=== PATIENT | female | born 1985 | race African-American/Black ===

== ENCOUNTER 2018-01-26 23:36 | Emergency (ER) | payer SELFPAY ==
[~2018-01-26] VITALS: Ht 160 cm; Wt 105.0 kg
[2018-01-27] MEDS ORDERED: ACETAMINOPHEN 325MG TABLET PO STA (00:37)
[2018-01-27] MEDS ORDERED: LABETALOL HCL 100MG TABLET PO ONE (00:45)
[2018-01-27] MEDS ORDERED: GUAIFENESIN 200MG/10ML SUGAR FREE UDC PO ONE (00:45)
[2018-01-27] MEDS ORDERED: AZITHROMYCIN 250 MG TABLET PO ONE (00:45)
[2018-01-27 01:26] VITALS: BP 203/131
== END 2018-01-27 01:26 | disposition home or self-care (01) ==
LOC: ER 23:36
DX: J06.9 Acute upper respiratory infection, unspecified (principal); I10 Essential (primary) hypertension; Z91.11 Patient's noncompliance with dietary regimen; Z98.890 Other specified postprocedural states
CPT/HCPCS: 71045; 81025; 99284

== ENCOUNTER 2024-01-15 18:26 | Inpatient (IN) | payer MEDICAID ==
[~2024-01-15] VITALS: Ht 157.5 cm; Wt 87.1 kg
[~2024-01-15 18:26] MED LIST: AMLO5TAB88 PO; ASPI-1406 PO; CLON0.1T PO; FURO-151 MT; FURO-151 PO; HYDR100T26 PO; HYDR50TA39 PO; LIP40 PO; METO-539 PO; POTA-205 MT; SPIR25TA6 PO; THIA100T72 PO
[2024-01-15 19:55] LABS: BASOPHILS % 0.8 % (0.0-2.0); EOSINOPHILS % 0.3 % (0.0-5.0); HEMATOCRIT. 33.8 % (36.0-48.0); HEMOGLOBIN. 11.1 g/dL (12.0-16.0); LYMPHOCYTES % 17.5 % (20.0-50.0); MEAN CORPUSCULAR HEMOGLOBIN 31.1 pg (28.0-32.0); MEAN CORPUSCULAR HGB CONC 32.9 g/dL (31.0-37.0); MEAN CORPUSCULAR VOLUME 94.6 fL (81.0-99.0); MEAN PLATELET VOLUME 7.1 fl (7.4-10.4); MONOCYTES % 9.4 % (2.0-8.0); PLATELET 309 x1000/uL (130-400); RED BLOOD CELL COUNT 3.57 mill/uL (4.2-5.4); WHITE BLOOD COUNT 9.2 x1000/uL (4.5-11.0)
[2024-01-15 20:01] LABS: CHLORIDE 104 mEq/L (98-107); POTASSIUM 4.3 mEq/L (3.5-5.1); SODIUM 136 mEq/L (136-145)
[2024-01-15 20:02] LABS: CALCIUM 9.4 mg/dL (8.7-10.4); CARBON DIOXIDE 17 mEq/L (21-32)
[2024-01-15 20:07] LABS: CREATININE 2.2 mg/dL (0.6-1.0); GLUCOSE 98 mg/dL (70-105); UREA NITROGEN BLOOD 27 mg/dL (9-23)
[2024-01-15 20:12] LABS: TROPONIN I HIGH SENSITIVITY 51 ng/L (3.0-34)
[2024-01-15] MEDS: FUROSEMIDE 40MG/4ML VIAL IVP ONE ×2 (20:13→23:30)
[2024-01-15 20:24] LABS: HCG SCREEN NEGATIVE
[2024-01-15] MEDS ORDERED: ENALAPRIL 2.5MG/2ML VIAL 2ML IV ONE (21:30)
[2024-01-15 21:34] LABS: TROPONIN I HIGH SENSITIVITY 56 ng/L (3.0-34)
[2024-01-15] MEDS: ENALAPRIL 1.25MG/ML VIAL 1ML IV NR (21:48)
[2024-01-16] VITALS (13 sets, daily range): BP systolic 101–185; BP diastolic 57–113; PULSE 78–100; RESP 13–26; TEMP 97.3–97.9
[2024-01-16] MEDS ORDERED: ZOLPIDEM TARTRATE 5MG TABLET PO PRN (01:00)
[2024-01-16] MEDS ORDERED: IPRATROPIUM/ALBUTEROL 0.5-3(2.5)MG/3ML NEB NEB PRN (01:00)
[2024-01-16] MEDS ORDERED: DOCUSATE SODIUM 100MG CAPSULE PO PRN (01:00)
[2024-01-16] MEDS ORDERED: ONDANSETRON HCL 4MG/2ML INJ IV PRN (01:00)
[2024-01-16] MEDS ORDERED: ACETAMINOPHEN 325MG TABLET PO PRN (01:00)
[2024-01-16] MEDS: AMLODIPINE 5MG TABLET PO SCH (01:09)
[2024-01-16] MEDS: THIAMINE HCL 100MG TABLET PO SCH (01:09)
[2024-01-16] MEDS: CLONIDINE 0.1MG TABLET PO PRN (02:48)
[2024-01-16] MEDS: MINOXIDIL 2.5MG TABLET PO NR (04:18)
[2024-01-16] MEDS: HYDRALAZINE HCL 100MG TABLET PO SCH (05:14)
[2024-01-16] MEDS: CLONIDINE 0.1MG TABLET PO SCH (05:14)
[2024-01-16 06:23] LABS: CLARITY URINE CLEAR (CLEAR); COLOR URINE YELLOW (YELLOW); GLUCOSE URINE NEGATIVE (NEGATIVE); KETONES URINE NEGATIVE (NEGATIVE); LEUKOCYTE ESTERASE URINE NEGATIVE (NEGATIVE); NITRITE URINE NEGATIVE (NEGATIVE); OCCULT BLOOD URINE 1+ (NEGATIVE); PROTEIN URINE 1+ (NEGATIVE); SPECIFIC GRAVITY URINE 1.006 (1.005-1.030); UROBILINOGEN URINE 0.2 E.U./dL (0.2-1.0)
[2024-01-16 07:37] LABS: FINE GRANULAR CASTS URINE 0-5 /lpf; MUCUS URINE 1+ /lpf (< = 2+); SQUAMOUS EPITHELIAL CELL URINE FEW /lpf (RARE/1+)
[2024-01-16 07:38] LABS: RBC URINE NONE SEEN /hpf (0-2); WBC URINE 0-2 /hpf (0-2)
[2024-01-16 07:39] LABS: BACTERIA URINE TRACE
[2024-01-16 08:05] LABS: *AMPHETAMINES SCREEN URINE NEGATIVE (NEGATIVE); *BENZODIAZEPINES SCREEN URINE NEGATIVE (NEGATIVE)
[2024-01-16 08:06] LABS: *COCAINE SCREEN URINE NEGATIVE (NEGATIVE); CANNABINOID URINE SCREEN NEGATIVE (NEGATIVE); ECSTASY MDMA SCREEN URINE NEGATIVE (NEGATIVE); METHADONE URINE SCREEN NEGATIVE (NEGATIVE); OPIATES URINE SCREEN NEGATIVE (NEGATIVE); PHENCYCLIDINE URINE SCREEN NEGATIVE (NEGATIVE)
[2024-01-16 09:50] LABS: CREATINE KINASE MB FRACTION 3.1 ng/mL (0.5-3.6)
[2024-01-16] MEDS: ENOXAPARIN 40MG/0.4ML SYR SUBCUT SCH (09:57)
[2024-01-16] MEDS: METOPROLOL TARTRATE 50MG TABLET PO SCH (10:04)
[2024-01-16] MEDS: ASPIRIN 81MG EC TABLET PO SCH (10:05)
[2024-01-16 10:54] LABS: *BARBITURATES SCREEN URINE NEGATIVE (NEGATIVE)
[2024-01-16] MEDS ORDERED: *PATIENT'S OWN MEDICATION STORAGE XX SCH (11:15)
[2024-01-16] MEDS ORDERED: FUROSEMIDE 40MG/4ML VIAL IVP SCH (14:15)
[2024-01-16] MEDS: FUROSEMIDE 40MG/4ML VIAL IVP SCH (14:16)
[2024-01-16 17:14] LABS: CREATINE KINASE MB FRACTION 5.6 ng/mL (0.5-3.6)
[2024-01-16] MEDS: ATORVASTATIN CALCIUM 40MG TABLET PO SCH (20:23)
[2024-01-16] MEDS: MAGNESIUM/ALUMINUM HYDROXIDE/SIMETHICONE 30ML UDC PO PRN ×2 (20:31→23:37)
[2024-01-16] MEDS: PANTOPRAZOLE SODIUM 40 MG/VIAL IV SCH (23:36)
[2024-01-17] VITALS (12 sets, daily range): BP systolic 88–127; BP diastolic 52–89; PULSE 65–81; RESP 15–23; TEMP 96.5–97.7
[2024-01-17 05:23] LABS: POTASSIUM 3.4 mEq/L (3.5-5.1)
[2024-01-17 05:24] LABS: CALCIUM 8.2 mg/dL (8.7-10.4)
[2024-01-17 05:29] LABS: CREATININE 2.3 mg/dL (0.6-1.0)
[2024-01-17 05:47] LABS: BASOPHILS % 0.4 % (0.0-2.0); HEMOGLOBIN. 10.3 g/dL (12.0-16.0); LYMPHOCYTES % 10.1 % (20.0-50.0); MEAN CORPUSCULAR HEMOGLOBIN 31.4 pg (28.0-32.0); MEAN CORPUSCULAR HGB CONC 33.4 g/dL (31.0-37.0); MEAN CORPUSCULAR VOLUME 94.1 fL (81.0-99.0); MEAN PLATELET VOLUME 7.4 fl (7.4-10.4); MONOCYTES % 10.6 % (2.0-8.0); NEUTROPHILS % 77.9 % (40.0-76.0); PLATELET 279 x1000/uL (130-400); RED BLOOD CELL COUNT 3.29 mill/uL (4.2-5.4); RED CELL DISTRIBUTION WIDTH 19.3 % (11.6-14.6); WHITE BLOOD COUNT 7.7 x1000/uL (4.5-11.0)
[2024-01-17] MEDS ORDERED: THIA100T88 PO (16:16)
[2024-01-18] VITALS (12 sets, daily range): BP systolic 94–157; BP diastolic 60–103; PULSE 74–87; RESP 12–23; TEMP 97.5–98.7
[2024-01-18 06:33] LABS: CALCIUM 9.2 mg/dL (8.7-10.4); POTASSIUM 3.3 mEq/L (3.5-5.1)
[2024-01-18 06:39] LABS: BASOPHILS % 0.3 % (0.0-2.0); CREATININE 2.4 mg/dL (0.6-1.0); HEMATOCRIT. 30.3 % (36.0-48.0); HEMOGLOBIN. 9.8 g/dL (12.0-16.0); LYMPHOCYTES % 12.2 % (20.0-50.0); MEAN CORPUSCULAR HEMOGLOBIN 30.5 pg (28.0-32.0); MEAN CORPUSCULAR HGB CONC 32.4 g/dL (31.0-37.0); MEAN CORPUSCULAR VOLUME 94.1 fL (81.0-99.0); MEAN PLATELET VOLUME 7.3 fl (7.4-10.4); MONOCYTES % 13.5 % (2.0-8.0); PLATELET 320 x1000/uL (130-400); RED BLOOD CELL COUNT 3.22 mill/uL (4.2-5.4); RED CELL DISTRIBUTION WIDTH 18.8 % (11.6-14.6); WHITE BLOOD COUNT 6.3 x1000/uL (4.5-11.0)
[2024-01-18] MEDS: FAMOTIDINE 20MG/2ML VIAL IV SCH (09:51)
[2024-01-18] MEDS: POTASSIUM CHLORIDE 20MEQ TABLET SR PO NR (12:05)
[2024-01-18] MEDS: HYDRALAZINE HCL 50MG TABLET PO SCH (14:00)
[2024-01-18 19:07] LABS: CREATININE URINE RANDOM 39.3 mg/dL
[2024-01-19] VITALS (12 sets, daily range): BP systolic 105–149; BP diastolic 66–99; PULSE 62–77; RESP 14–37; TEMP 97.1–98
[2024-01-19 08:15] LABS: POTASSIUM 3.7 mEq/L (3.5-5.1)
[2024-01-19 08:16] LABS: CALCIUM 8.5 mg/dL (8.7-10.4)
[2024-01-19 08:21] LABS: CREATININE 2.2 mg/dL (0.6-1.0)
[2024-01-19 08:23] LABS: ALBUMIN 3.1 g/dL (3.2-4.8)
[2024-01-19 08:31] LABS: BASOPHILS % 0.5 % (0.0-2.0); HEMATOCRIT. 30.1 % (36.0-48.0); HEMOGLOBIN. 9.7 g/dL (12.0-16.0); LYMPHOCYTES % 13.9 % (20.0-50.0); MEAN CORPUSCULAR HEMOGLOBIN 30.2 pg (28.0-32.0); MEAN CORPUSCULAR HGB CONC 32.2 g/dL (31.0-37.0); MEAN CORPUSCULAR VOLUME 93.8 fL (81.0-99.0); MEAN PLATELET VOLUME 7.2 fl (7.4-10.4); MONOCYTES % 13.8 % (2.0-8.0); NEUTROPHILS % 67.8 % (40.0-76.0); PLATELET 321 x1000/uL (130-400); RED BLOOD CELL COUNT 3.21 mill/uL (4.2-5.4); RED CELL DISTRIBUTION WIDTH 19.2 % (11.6-14.6); WHITE BLOOD COUNT 5.7 x1000/uL (4.5-11.0)
[2024-01-20] VITALS (13 sets, daily range): BP systolic 97–139; BP diastolic 62–94; PULSE 59–92; RESP 12–26; TEMP 97–97.8
[2024-01-20 10:45] LABS: BASOPHILS % 0.7 % (0.0-2.0); EOSINOPHILS % 2.9 % (0.0-5.0); LYMPHOCYTES % 16.5 % (20.0-50.0); MEAN CORPUSCULAR HEMOGLOBIN 30.5 pg (28.0-32.0); MEAN CORPUSCULAR HGB CONC 32.2 g/dL (31.0-37.0); MEAN CORPUSCULAR VOLUME 94.6 fL (81.0-99.0); MONOCYTES % 11.6 % (2.0-8.0); NEUTROPHILS % 68.3 % (40.0-76.0); PLATELET 355 x1000/uL (130-400); RED CELL DISTRIBUTION WIDTH 18.7 % (11.6-14.6); WHITE BLOOD COUNT 5.8 x1000/uL (4.5-11.0)
[2024-01-20 10:57] LABS: POTASSIUM 3.7 mEq/L (3.5-5.1)
[2024-01-20 10:58] LABS: CALCIUM 9.1 mg/dL (8.7-10.4)
[2024-01-20 11:02] LABS: CREATININE 2.1 mg/dL (0.6-1.0)
[2024-01-21] VITALS (8 sets, daily range): BP systolic 116–148; BP diastolic 69–99; PULSE 58–73; RESP 12–19; TEMP 97.1–97.7; O2SAT 99
[2024-01-21 05:40] LABS: POTASSIUM 3.8 mEq/L (3.5-5.1)
[2024-01-21 05:41] LABS: CALCIUM 9.6 mg/dL (8.7-10.4)
[2024-01-21 05:44] LABS: BASOPHILS % 0.8 % (0.0-2.0); EOSINOPHILS % 2.9 % (0.0-5.0); HEMATOCRIT. 30.9 % (36.0-48.0); HEMOGLOBIN. 10.1 g/dL (12.0-16.0); LYMPHOCYTES % 22.4 % (20.0-50.0); MEAN CORPUSCULAR HEMOGLOBIN 30.7 pg (28.0-32.0); MEAN CORPUSCULAR HGB CONC 32.6 g/dL (31.0-37.0); MEAN CORPUSCULAR VOLUME 94.1 fL (81.0-99.0); MEAN PLATELET VOLUME 7.2 fl (7.4-10.4); MONOCYTES % 10.5 % (2.0-8.0); NEUTROPHILS % 63.4 % (40.0-76.0); PLATELET 337 x1000/uL (130-400); RED BLOOD CELL COUNT 3.29 mill/uL (4.2-5.4); RED CELL DISTRIBUTION WIDTH 18.6 % (11.6-14.6); WHITE BLOOD COUNT 5.5 x1000/uL (4.5-11.0)
[2024-01-21 05:46] LABS: CREATININE 2.2 mg/dL (0.6-1.0)
[2024-01-22] MEDS ORDERED: FAMOTIDINE 20MG TABLET PO SCH (09:00)
== END 2024-01-21 14:35 | disposition home or self-care (01) | DRG 190 ==
LOC: ER 18:26 → EDBEDREQ 19:14 → EDBEDREQTM 20:53 → EDBEDREQ 20:53 → 5EST 01-16 00:47 → EDBEDREQSVC 01-16 00:51 → EDBEDREQTM 01-16 00:51
PROVIDERS: ADMIT Internal Medicine; ATTEND Internal Medicine
DX: I21.4 Non-ST elevation (NSTEMI) myocardial infarction (principal); I50.43 Acute on chronic combined systolic (congestive) and diastolic (congestive) heart failure; N17.9 Acute kidney failure, unspecified; D63.1 Anemia in chronic kidney disease; I13.0 Hypertensive heart and chronic kidney disease with heart failure and stage 1 through stage 4 chronic kidney disease, or unspecified chronic kidney disease; E78.5 Hyperlipidemia, unspecified; F10.10 Alcohol abuse, uncomplicated; I16.1 Hypertensive emergency; N18.30 Chronic kidney disease, stage 3 unspecified; R80.9 Proteinuria, unspecified; E87.6 Hypokalemia; Z98.891 History of uterine scar from previous surgery; Z79.899 Other long term (current) drug therapy; Z91.148 Patient's other noncompliance with medication regimen for other reason
CPT/HCPCS: 36415; 71045; 80048; 80305; 81003; 82040; 82550; 82553; 82570; 84156; 84484; 84703; 85025; 93005; 93970; 99291; C9113; J1650; J1940; J3490

== ENCOUNTER 2025-03-10 01:55 | Inpatient (IN) | payer MEDICAID ==
[~2025-03-10] VITALS: Ht 154.9 cm; Wt 97.5 kg
[2025-03-10] VITALS (82 sets, daily range): BP systolic 113–179; BP diastolic 73–139; PULSE 85–108; RESP 13–32; TEMP 35.5–37.1; O2SAT 90–100
[~2025-03-10 01:55] MED LIST changes: -FURO-151 MT; -FURO-151 PO; +HYDR100T11 PO; -HYDR100T26 PO; -HYDR50TA39 PO; +THIA100T88 PO
[2025-03-10 02:53] LABS: BASOPHILS % 0.4 % (0.0-2.0); EOSINOPHILS % 0.5 % (0.0-5.0); HEMATOCRIT. 31.6 % (36.0-48.0); HEMOGLOBIN. 10.3 g/dL (12.0-16.0); LYMPHOCYTES % 9.9 % (20.0-50.0); MEAN PLATELET VOLUME 7.3 fl (7.4-10.4); MONOCYTES % 8.2 % (2.0-8.0); NEUTROPHILS % 81.0 % (40.0-76.0); PLATELET 218 x1000/uL (130-400); RED BLOOD CELL COUNT 2.94 mill/uL (4.2-5.4); RED CELL DISTRIBUTION WIDTH 14.3 % (11.6-14.6)
[2025-03-10] MEDS: LABETALOL 5MG/ML 4ML INJ IV ONE (03:00)
[2025-03-10] MEDS: FUROSEMIDE 40MG/4ML VIAL IV ONE (03:01)
[2025-03-10] MEDS: NICARDIPINE 40MG/200ML PREMIX 200 ML IV SCH (03:02)
[2025-03-10 03:03] LABS: HCG SCREEN NEGATIVE
[2025-03-10 03:06] LABS: UREA NITROGEN BLOOD 47 mg/dL (9-23)
[2025-03-10 03:08] LABS: ASPARTATE AMINOTRANSFERASE 18 IU/L (<34)
[2025-03-10 03:09] LABS: BILIRUBIN DIRECT 1.1 mg/dL (<=3.0); BILIRUBIN TOTAL 3.8 mg/dL (0.1-1.0); PROTEIN TOTAL 6.9 g/dL (6.0-8.3)
[2025-03-10 03:11] LABS: CREATININE 4.7 mg/dL (0.6-1.0)
[2025-03-10 03:12] LABS: TROPONIN I HIGH SENSITIVITY 162 ng/L (3.0-34)
[2025-03-10 04:28] LABS: TROPONIN I HIGH SENSITIVITY 136 ng/L (3.0-34)
[2025-03-10] MEDS: PNEUMOCOCCAL 20-VAL CONJ-DIP CRM 0.5ML IM ONE (06:30)
[2025-03-10] MEDS: NICARDIPINE 40MG/200ML PREMIX 200 ML IV PRN (08:45)
[2025-03-10] MEDS: AMLODIPINE 5MG TABLET PO SCH (09:53)
[2025-03-10] MEDS: FUROSEMIDE 40MG/4ML VIAL IVP SCH ×2 (09:53→20:54)
[2025-03-10 10:37] LABS: TROPONIN I HIGH SENSITIVITY 162 ng/L (3.0-34)
[2025-03-10] MEDS ORDERED: DIPHENHYDRAMINE 50MG/ML VIAL IV PRN (12:30)
[2025-03-10] MEDS ORDERED: ZOLPIDEM TARTRATE 5MG TABLET PO PRN (12:30)
[2025-03-10] MEDS ORDERED: ACETAMINOPHEN 325MG TABLET PO PRN (12:30)
[2025-03-10] MEDS ORDERED: ONDANSETRON HCL 4MG/2ML INJ IV PRN (12:30)
[2025-03-10] MEDS ORDERED: MAGNESIUM/ALUMINUM HYDROXIDE/SIMETHICONE 30ML UDC PO PRN (12:30)
[2025-03-10] MEDS: HYDRALAZINE HCL 100MG TABLET PO SCH (13:10)
[2025-03-10] MEDS: ASPIRIN 81MG TABLET PO SCH (13:11)
[2025-03-10] MEDS: POTASSIUM CHLORIDE 20MEQ/PACKET PO SCH (13:11)
[2025-03-10] MEDS: ENOXAPARIN 30MG/0.3ML SYR SUBCUT SCH (13:11)
[2025-03-10] MEDS: ISOSORBIDE MONONITRATE 30MG TABLET SR 24HR PO SCH (13:11)
[2025-03-10] MEDS: SODIUM CHLORIDE 0.9% 3ML FLUSH IVF SCH (14:00)
[2025-03-10 20:38] LABS: CLARITY URINE CLEAR (CLEAR); GLUCOSE URINE 1+ (NEGATIVE); KETONES URINE NEGATIVE (NEGATIVE); LEUKOCYTE ESTERASE URINE NEGATIVE (NEGATIVE); NITRITE URINE NEGATIVE (NEGATIVE); OCCULT BLOOD URINE NEGATIVE (NEGATIVE); PH URINE 5.5 (4.5-8.0); PROTEIN URINE 1+ (NEGATIVE); SPECIFIC GRAVITY URINE 1.007 (1.005-1.030); UROBILINOGEN URINE 0.2 E.U./dL (0.2-1.0)
[2025-03-10 20:54] LABS: *AMPHETAMINES SCREEN URINE NEGATIVE (NEGATIVE)
[2025-03-10 20:55] LABS: *BENZODIAZEPINES SCREEN URINE NEGATIVE (NEGATIVE)
[2025-03-10 20:56] LABS: *BARBITURATES SCREEN URINE NEGATIVE (NEGATIVE); *COCAINE SCREEN URINE NEGATIVE (NEGATIVE); CANNABINOID URINE SCREEN NEGATIVE (NEGATIVE); ECSTASY MDMA SCREEN URINE NEGATIVE (NEGATIVE); METHADONE URINE SCREEN NEGATIVE (NEGATIVE); OPIATES URINE SCREEN NEGATIVE (NEGATIVE); PHENCYCLIDINE URINE SCREEN NEGATIVE (NEGATIVE)
[2025-03-10 21:05] LABS: COLOR URINE STRAW (YELLOW)
[2025-03-10 21:06] LABS: BACTERIA URINE NONE SEEN; RBC URINE NONE SEEN /hpf (0-2); SQUAMOUS EPITHELIAL CELL URINE FEW /lpf (RARE/1+); WBC URINE 0-2 /hpf (0-2)
[2025-03-10] MEDS: ACETAMINOPHEN 325MG TABLET PO PRN (22:48)
[2025-03-11] VITALS (91 sets, daily range): BP systolic 111–183; BP diastolic 83–104; PULSE 84–121; RESP 12–36; TEMP 36.3–36.5; O2SAT 94–100
[2025-03-11] MEDS: HYDRALAZINE 20MG/ML VIAL IV PRN (03:27)
[2025-03-11 05:48] LABS: CREATININE 4.6 mg/dL (0.6-1.0); UREA NITROGEN BLOOD 44.0 mg/dL (9-23)
[2025-03-11] MEDS: ISOSORBIDE MONONITRATE 60MG TABLET SR 24HR PO SCH (08:37)
[2025-03-11] MEDS: POTASSIUM CHLORIDE 20MEQ TABLET SR PO SCH (08:37)
[2025-03-11] MEDS: CARVEDILOL 3.125 MG TABLET PO SCH (08:38)
[2025-03-11 15:16] LABS: HEMATOCRIT. 27.5 % (36.0-48.0); HEMOGLOBIN. 9.1 g/dL (12.0-16.0); MEAN PLATELET VOLUME 7.5 fl (7.4-10.4); PLATELET 199 x1000/uL (130-400); RED BLOOD CELL COUNT 2.52 mill/uL (4.2-5.4); RED CELL DISTRIBUTION WIDTH 14.4 % (11.6-14.6)
[2025-03-11 15:33] LABS: LYMPHOCYTES % MANUAL 5.0 % (20.0-60.0); MONOCYTES % MANUAL 7.0 % (2.0-8.0); NEUTROPHILS % MANUAL 88.0 % (45.0-75.0); PLATELET ESTIMATE NORMAL
[2025-03-12] VITALS (7 sets, daily range): BP systolic 134–160; BP diastolic 78–97; PULSE 82–96; RESP 15–18; TEMP 36.2–36.4; O2SAT 90–99
[2025-03-12 09:10] LABS: COMPLEMENT C3 105 mg/dL (82-167); COMPLEMENT C4 34 mg/dL (12-38)
[2025-03-12 13:07] LABS: ANTI-NUCLEAR ANTIBODIES DIRECT Negative (Negative)
[2025-03-12] MEDS: CARVEDILOL 6.25 MG TABLET PO SCH (22:02)
[2025-03-13] VITALS: BP 141/83; PULSE 88; RESP 17; TEMP 36.6; O2SAT 96
[2025-03-13] MEDS ORDERED: HYDRALAZINE 10 MG in SODIUM CHLORIDE 0.9% 49.5 ML IV PRN (03:45)
[2025-03-13 04:00] VITALS: BP 143/82; PULSE 89; RESP 18; TEMP 36.6; O2SAT 95
[2025-03-13 08:00] VITALS: BP 131/79; PULSE 93; RESP 18; TEMP 36.6; O2SAT 100
[2025-03-13 12:00] VITALS: BP 140/77; PULSE 93; RESP 17; TEMP 37.2; O2SAT 99
[2025-03-13 14:31] VITALS: BP 136/85; PULSE 88; RESP 19; TEMP 99
== END 2025-03-13 17:10 | disposition home or self-care (01) | DRG 199 ==
LOC: ER 01:55 → EDBEDREQTM 03:19 → EDBEDREQ 03:19 → ENRESERV 03:56 → MICUSO 05:08 → 5WST 03-11 22:47 → 7EST 03-13 02:55
PROVIDERS: ADMIT Internal Medicine; ATTEND Internal Medicine
DX: I16.1 Hypertensive emergency (principal); I21.A1 Myocardial infarction type 2; I50.43 Acute on chronic combined systolic (congestive) and diastolic (congestive) heart failure; N17.9 Acute kidney failure, unspecified; D63.1 Anemia in chronic kidney disease; I42.0 Dilated cardiomyopathy; I13.0 Hypertensive heart and chronic kidney disease with heart failure and stage 1 through stage 4 chronic kidney disease, or unspecified chronic kidney disease; N18.32 Chronic kidney disease, stage 3b; Y90.9 Presence of alcohol in blood, level not specified; F10.10 Alcohol abuse, uncomplicated; E78.5 Hyperlipidemia, unspecified; Z91.148 Patient's other noncompliance with medication regimen for other reason; Z79.82 Long term (current) use of aspirin; Z79.899 Other long term (current) drug therapy
CPT/HCPCS: 36415; 71045; 76770; 80048; 80076; 80305; 81003; 82550; 83880; 84484; 84703; 85025; 86038; 86160; 93005; 93306; 93970; 99291; A4606; J0360; J1650; J1938; J3490

== ENCOUNTER 2025-04-19 20:33 | Inpatient (IN) | payer MEDICAID ==
[~2025-04-19] VITALS: Ht 162.6 cm; Wt 81.7 kg
[~2025-04-19 20:33] MED LIST changes: -CLON0.1T PO; -METO-539 PO; -SPIR25TA6 PO; -THIA100T72 PO; -THIA100T88 PO
[2025-04-19 21:17] VITALS: O2SAT 99
[2025-04-19] MEDS: HYDRALAZINE 20MG/ML VIAL IV ONE ×2 (21:46→22:37)
[2025-04-19 22:14] LABS: HEMATOCRIT. 31.1 % (36.0-48.0); HEMOGLOBIN. 9.7 g/dL (12.0-16.0); MEAN PLATELET VOLUME 9.0 fl (7.4-10.4); PLATELET 134 x1000/uL (130-400); RED BLOOD CELL COUNT 2.81 mill/uL (4.2-5.4); RED CELL DISTRIBUTION WIDTH 16.9 % (11.6-14.6)
[2025-04-19] MEDS ORDERED: HYDRALAZINE 20MG/ML VIAL IV ONE (22:15)
[2025-04-19 22:30] LABS: UREA NITROGEN BLOOD 58 mg/dL (9-23)
[2025-04-19 22:39] LABS: LYMPHOCYTES % MANUAL 3.0 % (20.0-60.0); MONOCYTES % MANUAL 6.0 % (2.0-8.0); NEUTROPHILS % MANUAL 91.0 % (45.0-75.0); PLATELET ESTIMATE NORMAL
[2025-04-19 22:51] LABS: CREATININE 7.2 mg/dL (0.6-1.0); TROPONIN I HIGH SENSITIVITY 133 ng/L (3.0-34)
[2025-04-20] VITALS (69 sets, daily range): BP systolic 100–169; BP diastolic 63–91; PULSE 82–99; RESP 9–25; TEMP 34.3–36.7; O2SAT 89–99
[2025-04-20] MEDS ORDERED: NICARDIPINE 50 MG in SODIUM CHLORIDE 0.9% 230 ML IV SCH (00:15)
[2025-04-20] MEDS: MORPHINE SULFATE 4 MG/ML INJ (FOR IV/IM USE) IV ONE (00:24)
[2025-04-20] MEDS: ONDANSETRON HCL 4MG/2ML INJ IV ONE (00:24)
[2025-04-20] MEDS: ASPIRIN 325MG EC TABLET PO ONE (00:24)
[2025-04-20 00:45] LABS: INR 1.3
[2025-04-20 00:47] LABS: TROPONIN I HIGH SENSITIVITY 113 ng/L (3.0-34)
[2025-04-20] MEDS: NICARDIPINE 50 MG in SODIUM CHLORIDE 0.9% 230 ML IV SCH (00:51)
[2025-04-20 00:56] LABS: HCG SCREEN NEGATIVE
[2025-04-20] MEDS: HYDROCODONE/ACETAMINOPHEN 10/325MG TABLET PO PRN (05:52)
[2025-04-20] MEDS: NICARDIPINE 40MG/200ML PREMIX 200 ML IV PRN (08:17)
[2025-04-20] MEDS ORDERED: FUROSEMIDE 40MG/4ML VIAL IVP ONE (09:00)
[2025-04-20] MEDS ORDERED: NALOXONE HCL 0.4MG/ML VIAL IV PRN (09:15)
[2025-04-20] MEDS: CEFTRIAXONE 1GM/50ML 50 ML IV SCH (10:56)
[2025-04-20] MEDS: ISOSORBIDE MONONITRATE 30MG TABLET SR 24HR PO SCH (10:57)
[2025-04-20] MEDS: POTASSIUM CHLORIDE 20MEQ TABLET SR PO SCH (10:57)
[2025-04-20] MEDS: FUROSEMIDE 100MG/10ML VIAL IVP SCH (10:57)
[2025-04-20 11:37] LABS: CLARITY URINE CLEAR (CLEAR); COLOR URINE YELLOW (YELLOW); GLUCOSE URINE NEGATIVE (NEGATIVE); KETONES URINE NEGATIVE (NEGATIVE); LEUKOCYTE ESTERASE URINE NEGATIVE (NEGATIVE); NITRITE URINE NEGATIVE (NEGATIVE); OCCULT BLOOD URINE NEGATIVE (NEGATIVE); PH URINE 5.0 (4.5-8.0); PROTEIN URINE 2+ (NEGATIVE); SPECIFIC GRAVITY URINE 1.013 (1.005-1.030); UROBILINOGEN URINE 0.2 E.U./dL (0.2-1.0)
[2025-04-20 11:52] LABS: AMORPHOUS SEDIMENT URINE 1+ /lpf; BACTERIA URINE NONE SEEN; HYALINE CASTS URINE 0-5 /lpf; RBC URINE 0-2 /hpf (0-2); SQUAMOUS EPITHELIAL CELL URINE RARE /lpf (RARE/1+); WBC URINE 0-2 /hpf (0-2); YEAST URINE NONE SEEN
[2025-04-20 13:14] LABS: UREA NITROGEN BLOOD 77 mg/dL (9-23)
[2025-04-20 13:16] LABS: ASPARTATE AMINOTRANSFERASE 159 IU/L (<34); BILIRUBIN TOTAL 1.5 mg/dL (0.1-1.0); PROTEIN TOTAL 6.7 g/dL (6.0-8.3)
[2025-04-20 13:20] LABS: CREATININE 7.1 mg/dL (0.6-1.0)
[2025-04-20] MEDS: METOLAZONE 2.5MG TABLET PO SCH (14:01)
[2025-04-20] MEDS: HYDRALAZINE HCL 100MG TABLET PO SCH (14:01)
[2025-04-20] MEDS: FUROSEMIDE 40MG/4ML VIAL IVP SCH (17:01)
[2025-04-20] MEDS: ONDANSETRON HCL 4MG/2ML INJ IV PRN (20:05)
[2025-04-20] MEDS: AMLODIPINE 5MG TABLET PO SCH (21:35)
[2025-04-20] MEDS: ATORVASTATIN CALCIUM 40MG TABLET PO SCH (21:35)
[2025-04-21] VITALS (35 sets, daily range): BP systolic 122–167; BP diastolic 73–104; PULSE 80–89; RESP 7–24; TEMP 36.3–36.7; O2SAT 93–99
[2025-04-21 07:48] LABS: UREA NITROGEN BLOOD 82.0 mg/dL (9-23)
[2025-04-21 07:51] LABS: PHOSPHORUS 6.8 mg/dL (2.5-4.9)
[2025-04-21 08:09] LABS: CREATININE 7.4 mg/dL (0.6-1.0)
[2025-04-21] MEDS: SODIUM BICARBONATE 650MG TABLET PO SCH (09:27)
[2025-04-21] MEDS: ASPIRIN 81MG EC TABLET PO SCH (09:27)
[2025-04-21] MEDS: PANTOPRAZOLE SODIUM 40 MG/VIAL IV SCH (09:28)
[2025-04-21 11:21] LABS: HEMATOCRIT. 24.8 % (36.0-48.0); MEAN PLATELET VOLUME 8.2 fl (7.4-10.4); PLATELET 140 x1000/uL (130-400); RED BLOOD CELL COUNT 2.38 mill/uL (4.2-5.4); RED CELL DISTRIBUTION WIDTH 16.1 % (11.6-14.6)
[2025-04-21 11:25] LABS: HEMOGLOBIN. 8.0 g/dL (12.0-16.0)
[2025-04-21] MEDS: ACETAMINOPHEN 325MG TABLET PO PRN (17:30)
[2025-04-21 19:02] LABS: BAND% 3.0 % (1.0-6.0); LYMPHOCYTES % MANUAL 2.0 % (20.0-60.0); METAMYELOCYTES % 2.0 % (0-0); MONOCYTES % MANUAL 3.0 % (2.0-8.0); NEUTROPHILS % MANUAL 90.0 % (45.0-75.0); PLATELET ESTIMATE NORMAL
[2025-04-22] VITALS (46 sets, daily range): BP systolic 140–164; BP diastolic 79–94; PULSE 67–83; RESP 11–30; TEMP 36.8–37.1; O2SAT 94–100
[2025-04-22] MEDS: ISOSORBIDE MONONITRATE 30MG TABLET SR 24HR PO SCH (09:35)
[2025-04-22] MEDS: METOLAZONE 5MG TABLET PO SCH (20:45)
[2025-04-22] MEDS: POTASSIUM CHLORIDE 20MEQ TABLET SR PO NR (20:46)
[2025-04-23] VITALS (7 sets, daily range): BP systolic 129–159; BP diastolic 78–100; PULSE 66–90; RESP 14–18; TEMP 35.6–36.61404; O2SAT 96–99
[2025-04-23] MEDS ORDERED: LIDOCAINE HCL 1% 10 MG/ML 10ML VIAL ONE (07:49)
[2025-04-23] MEDS ORDERED: HEPARIN 1000 UNITS/ML 10ML ONE (07:49)
[2025-04-23] MEDS: ISOSORBIDE MONONITRATE 60MG TABLET SR 24HR PO SCH (10:03)
[2025-04-23 17:15] LABS: HEPATITIS A AB IGM NEGATIVE (Negative); HEPATITIS B CORE AB IGM NEGATIVE (Negative)
[2025-04-23 17:16] LABS: HEPATITIS C AB NON REACTIVE (Neg) (Negative)
[2025-04-23] MEDS: DOCUSATE SODIUM 250MG CAPSULE PO SCH (20:31)
[2025-04-23] MEDS: BISACODYL 10MG SUPP PR PRN (20:55)
[2025-04-24] VITALS (21 sets, daily range): BP systolic 140–174; BP diastolic 80–110; PULSE 76–99; RESP 12–22; TEMP 36.1–36.78072; O2SAT 97–100
[2025-04-24 08:32] LABS: HEMATOCRIT. 27.6 % (36.0-48.0); HEMOGLOBIN. 9.1 g/dL (12.0-16.0); MEAN PLATELET VOLUME 8.5 fl (7.4-10.4); PLATELET 148 x1000/uL (130-400); RED BLOOD CELL COUNT 2.71 mill/uL (4.2-5.4); RED CELL DISTRIBUTION WIDTH 15.9 % (11.6-14.6)
[2025-04-24 09:01] LABS: UREA NITROGEN BLOOD 70.0 mg/dL (9-23)
[2025-04-24 09:06] LABS: CREATININE 6.8 mg/dL (0.6-1.0)
[2025-04-24] MEDS: LACTULOSE 20G/30ML UDC PO NR (10:11)
[2025-04-24] MEDS: FAMOTIDINE 20MG/2ML VIAL IV SCH (10:12)
[2025-04-24 15:02] LABS: LYMPHOCYTES % MANUAL 4.0 % (20.0-60.0); METAMYELOCYTES % 2.0 % (0-0); MONOCYTES % MANUAL 5.0 % (2.0-8.0); NEUTROPHILS % MANUAL 89.0 % (45.0-75.0); PLATELET ESTIMATE NORMAL
[2025-04-24] MEDS: SORBITOL 70% SOLN 30ML PO NR (19:29)
[2025-04-24] MEDS: NIFEDIPINE XL 60MG TAB PO SCH (19:29)
[2025-04-24] MEDS: HYDRALAZINE 20MG/ML VIAL IV PRN (22:35)
[2025-04-25] VITALS: BP 134/82; PULSE 112; RESP 22; TEMP 36.1; O2SAT 99
[2025-04-25] MEDS: ZOLPIDEM TARTRATE 5MG TABLET PO PRN (01:13)
[2025-04-25 04:00] VITALS: BP 129/78; PULSE 92; RESP 16; TEMP 36.2; O2SAT 99
[2025-04-25 06:53] LABS: HEMATOCRIT. 26.6 % (36.0-48.0); HEMOGLOBIN. 8.7 g/dL (12.0-16.0); MEAN PLATELET VOLUME 8.3 fl (7.4-10.4); PLATELET 134 x1000/uL (130-400); RED BLOOD CELL COUNT 2.61 mill/uL (4.2-5.4); RED CELL DISTRIBUTION WIDTH 16.0 % (11.6-14.6)
[2025-04-25 07:12] LABS: UREA NITROGEN BLOOD 78.0 mg/dL (9-23)
[2025-04-25 07:34] LABS: CREATININE 7.4 mg/dL (0.6-1.0)
[2025-04-25 08:00] VITALS: BP 132/77; PULSE 90; RESP 12; TEMP 36.3; O2SAT 98
[2025-04-25 12:00] VITALS: BP 120/75; PULSE 84; RESP 12; TEMP 36.7; O2SAT 98
[2025-04-25 13:03] LABS: BAND% 4.0 % (1.0-6.0); LYMPHOCYTES % MANUAL 1.0 % (20.0-60.0); MONOCYTES % MANUAL 3.0 % (2.0-8.0); NEUTROPHILS % MANUAL 92.0 % (45.0-75.0); NUCLEATED RED BLOOD CELLS 4 /100 WBC
[2025-04-25 13:04] LABS: PLATELET ESTIMATE NORMAL
[2025-04-25 16:00] VITALS: BP 133/74; PULSE 84; RESP 16; TEMP 35.8; O2SAT 100
[2025-04-25 20:00] VITALS: BP 129/83; PULSE 80; RESP 14; TEMP 36.4; O2SAT 100
[2025-04-25] MEDS ORDERED: ZOLPIDEM TARTRATE 5MG TABLET PO PRN (21:00)
[2025-04-26] VITALS: BP 126/74; PULSE 77; RESP 11; TEMP 36.4; O2SAT 97
[2025-04-26 04:00] VITALS: BP 141/72; PULSE 84; RESP 20; TEMP 36.1; O2SAT 99
[2025-04-26 08:00] VITALS: BP 131/83; PULSE 82; RESP 13; TEMP 36.8; O2SAT 99
[2025-04-26 12:00] VITALS: BP 136/80; PULSE 85; RESP 13; TEMP 36.6; O2SAT 99
[2025-04-26] MEDS: HYDROCODONE/ACETAMINOPHEN 5/325MG TABLET PO NR (13:28)
[2025-04-26 16:00] VITALS: BP 123/77; PULSE 70; RESP 10; TEMP 37.2; O2SAT 98
[2025-04-26 16:16] LABS: HEMATOCRIT. 24.7 % (36.0-48.0); HEMOGLOBIN. 8.2 g/dL (12.0-16.0); MEAN PLATELET VOLUME 9.1 fl (7.4-10.4); PLATELET 139 x1000/uL (130-400); RED BLOOD CELL COUNT 2.44 mill/uL (4.2-5.4); RED CELL DISTRIBUTION WIDTH 15.9 % (11.6-14.6)
[2025-04-26 16:28] LABS: UREA NITROGEN BLOOD 79.0 mg/dL (9-23)
[2025-04-26 16:38] LABS: EOSINOPHILS % MANUAL 1.0 % (0.0-5.0); LYMPHOCYTES % MANUAL 2.0 % (20.0-60.0); MONOCYTES % MANUAL 6.0 % (2.0-8.0); NEUTROPHILS % MANUAL 91.0 % (45.0-75.0); NUCLEATED RED BLOOD CELLS 6 /100 WBC; PLATELET ESTIMATE NORMAL
[2025-04-26 17:02] LABS: CREATININE 7.6 mg/dL (0.6-1.0)
[2025-04-26 20:00] VITALS: BP 121/71; PULSE 75; RESP 14; TEMP 36.6; O2SAT 98
[2025-04-27] VITALS (14 sets, daily range): BP systolic 119–160; BP diastolic 70–99; PULSE 68–86; RESP 14–20; TEMP 34.4–36.8; O2SAT 98–100
[2025-04-27 18:39] LABS: HEMATOCRIT. 24.6 % (36.0-48.0); HEMOGLOBIN. 8.0 g/dL (12.0-16.0); MEAN PLATELET VOLUME 8.2 fl (7.4-10.4); PLATELET 137 x1000/uL (130-400); RED BLOOD CELL COUNT 2.40 mill/uL (4.2-5.4); RED CELL DISTRIBUTION WIDTH 15.9 % (11.6-14.6)
[2025-04-27 18:54] LABS: UREA NITROGEN BLOOD 52.0 mg/dL (9-23)
[2025-04-27 19:41] LABS: CREATININE 5.9 mg/dL (0.6-1.0)
[2025-04-27 19:55] LABS: LYMPHOCYTES % MANUAL 8.0 % (20.0-60.0); MONOCYTES % MANUAL 12.0 % (2.0-8.0); NEUTROPHILS % MANUAL 80.0 % (45.0-75.0); PLATELET ESTIMATE NORMAL
[2025-04-28] VITALS (9 sets, daily range): BP systolic 132–157; BP diastolic 73–91; PULSE 75–89; RESP 12–20; TEMP 34.4–37; O2SAT 95–98
[2025-04-28] MEDS ORDERED: NALOXONE HCL 0.4MG/ML VIAL IV PRN (02:30)
[2025-04-28] MEDS: HYDROCODONE/ACETAMINOPHEN 10/325MG TABLET PO PRN (03:45)
[2025-04-28 06:50] LABS: UREA NITROGEN BLOOD 53.0 mg/dL (9-23)
[2025-04-28 06:52] LABS: HEMATOCRIT. 25.3 % (36.0-48.0); HEMOGLOBIN. 8.3 g/dL (12.0-16.0); MEAN PLATELET VOLUME 9.6 fl (7.4-10.4); PLATELET 155 x1000/uL (130-400); RED BLOOD CELL COUNT 2.50 mill/uL (4.2-5.4); RED CELL DISTRIBUTION WIDTH 15.8 % (11.6-14.6)
[2025-04-28 07:13] LABS: CREATININE 6.2 mg/dL (0.6-1.0)
[2025-04-28] MEDS ORDERED: VANCOMYCIN 1.5GM/250ML 250 ML IV SCH (09:00)
[2025-04-28] MEDS: PIPERACILLIN/TAZO 3.375G/50ML 50 ML IV SCH (09:07)
[2025-04-28] MEDS ORDERED: NIFE-32 PO (09:55)
[2025-04-28] MEDS ORDERED: HYDR100T11 PO (09:55)
[2025-04-28 11:38] LABS: EOSINOPHILS % MANUAL 2.0 % (0.0-5.0); LYMPHOCYTES % MANUAL 5.0 % (20.0-60.0); MONOCYTES % MANUAL 9.0 % (2.0-8.0); NEUTROPHILS % MANUAL 84.0 % (45.0-75.0); NUCLEATED RED BLOOD CELLS 7 /100 WBC; PLATELET ESTIMATE NORMAL
[2025-04-28 12:04] LABS: HEMATOCRIT. 22.7 % (36.0-48.0); HEMOGLOBIN. 7.6 g/dL (12.0-16.0); MEAN PLATELET VOLUME 8.5 fl (7.4-10.4); PLATELET 141 x1000/uL (130-400); RED BLOOD CELL COUNT 2.26 mill/uL (4.2-5.4); RED CELL DISTRIBUTION WIDTH 15.9 % (11.6-14.6)
[2025-04-28] MEDS ORDERED: CEFD300C3 MT (12:09)
[2025-04-28 12:19] LABS: UREA NITROGEN BLOOD 71.0 mg/dL (9-23)
[2025-04-28 12:26] LABS: INR 1.2
[2025-04-28 13:06] LABS: CREATININE 6.2 mg/dL (0.6-1.0)
[2025-04-28] MEDS: VANCOMYCIN 1.75GM PMX (XELLIA) 350 ML IV SCH (13:06)
[2025-04-28 13:59] LABS: BAND% 3.0 % (1.0-6.0); LYMPHOCYTES % MANUAL 1.0 % (20.0-60.0); MONOCYTES % MANUAL 2.0 % (2.0-8.0); NEUTROPHILS % MANUAL 94.0 % (45.0-75.0); NUCLEATED RED BLOOD CELLS 4 /100 WBC
[2025-04-28 14:00] LABS: PLATELET ESTIMATE NORMAL
[2025-04-29] VITALS (15 sets, daily range): BP systolic 87–179; BP diastolic 67–103; PULSE 76–89; RESP 13–19; TEMP 35.7–36.9474; O2SAT 95–98
[2025-04-29 17:49] LABS: HEMATOCRIT. 25.5 % (36.0-48.0); HEMOGLOBIN. 8.2 g/dL (12.0-16.0); MEAN PLATELET VOLUME 9.0 fl (7.4-10.4); PLATELET 152 x1000/uL (130-400); RED BLOOD CELL COUNT 2.50 mill/uL (4.2-5.4); RED CELL DISTRIBUTION WIDTH 16.2 % (11.6-14.6)
[2025-04-29 18:08] LABS: UREA NITROGEN BLOOD 34.0 mg/dL (9-23)
[2025-04-29 18:09] LABS: CREATININE 3.9 mg/dL (0.6-1.0)
[2025-04-29 18:15] LABS: EOSINOPHILS % MANUAL 1.0 % (0.0-5.0); LYMPHOCYTES % MANUAL 4.0 % (20.0-60.0); MONOCYTES % MANUAL 7.0 % (2.0-8.0); NEUTROPHILS % MANUAL 88.0 % (45.0-75.0); PLATELET ESTIMATE NORMAL
[2025-04-30] VITALS: BP 142/85; PULSE 88; RESP 18; TEMP 36.9; O2SAT 97
[2025-04-30 07:23] LABS: CREATININE 4.4 mg/dL (0.6-1.0); UREA NITROGEN BLOOD 39.0 mg/dL (9-23)
[2025-04-30 08:00] VITALS: BP 161/93; PULSE 81; RESP 12; TEMP 36.4
[2025-04-30 12:00] VITALS: BP 155/92; PULSE 88; RESP 14; TEMP 36.3
[2025-04-30] MEDS: POTASSIUM CHLORIDE 20MEQ TABLET SR PO NR (13:14)
[2025-04-30 16:00] VITALS: BP 150/87; PULSE 83; RESP 15; TEMP 36.4
[2025-04-30 20:00] VITALS: BP 152/90; PULSE 88; RESP 17; TEMP 36.3; O2SAT 98
[2025-04-30 21:16] VITALS: BP 152/88; PULSE 88; RESP 16; TEMP 36.3
[2025-05-01] VITALS (13 sets, daily range): BP systolic 140–163; BP diastolic 78–97; PULSE 72–88; RESP 16–20; TEMP 36.3–36.50292; O2SAT 98–100
[2025-05-01] MEDS: VANCOMYCIN 500 MG in DEXT 5% WATER 100 ML IV SCH (14:41)
[2025-05-01 19:31] LABS: HEMATOCRIT. 22.2 % (36.0-48.0); HEMOGLOBIN. 7.2 g/dL (12.0-16.0); MEAN PLATELET VOLUME 9.3 fl (7.4-10.4); PLATELET 139 x1000/uL (130-400); RED BLOOD CELL COUNT 2.21 mill/uL (4.2-5.4); RED CELL DISTRIBUTION WIDTH 16.3 % (11.6-14.6)
[2025-05-01 19:37] LABS: CREATININE 3.9 mg/dL (0.6-1.0)
[2025-05-01 19:38] LABS: UREA NITROGEN BLOOD 33.0 mg/dL (9-23)
[2025-05-01 22:51] LABS: EOSINOPHILS % MANUAL 2.0 % (0.0-5.0); LYMPHOCYTES % MANUAL 6.0 % (20.0-60.0); MONOCYTES % MANUAL 9.0 % (2.0-8.0); NEUTROPHILS % MANUAL 83.0 % (45.0-75.0); PLATELET ESTIMATE NORMAL
[2025-05-02] VITALS (7 sets, daily range): BP systolic 129–166; BP diastolic 82–107; PULSE 78–89; RESP 12–21; TEMP 36.3–36.4; O2SAT 99–100
[2025-05-02 07:49] LABS: HEMATOCRIT. 21.5 % (36.0-48.0); HEMOGLOBIN. 7.1 g/dL (12.0-16.0); MEAN PLATELET VOLUME 9.4 fl (7.4-10.4); PLATELET 148 x1000/uL (130-400); RED BLOOD CELL COUNT 2.13 mill/uL (4.2-5.4); RED CELL DISTRIBUTION WIDTH 16.5 % (11.6-14.6)
[2025-05-02 07:56] LABS: CREATININE 4.4 mg/dL (0.6-1.0); UREA NITROGEN BLOOD 38.0 mg/dL (9-23)
[2025-05-02 18:06] LABS: EOSINOPHILS % MANUAL 3.0 % (0.0-5.0); LYMPHOCYTES % MANUAL 4.0 % (20.0-60.0); MONOCYTES % MANUAL 6.0 % (2.0-8.0); NEUTROPHILS % MANUAL 87.0 % (45.0-75.0); PLATELET ESTIMATE NORMAL
[2025-05-03] VITALS (21 sets, daily range): BP systolic 121–169; BP diastolic 69–108; PULSE 74–92; RESP 11–19; TEMP 36.2–36.55848; O2SAT 99–100
[2025-05-03 07:11] LABS: MEAN PLATELET VOLUME 9.0 fl (7.4-10.4); PLATELET 125 x1000/uL (130-400); RED BLOOD CELL COUNT 1.69 mill/uL (4.2-5.4); RED CELL DISTRIBUTION WIDTH 16.2 % (11.6-14.6)
[2025-05-03 07:19] LABS: CREATININE 4.8 mg/dL (0.6-1.0); UREA NITROGEN BLOOD 54.0 mg/dL (9-23)
[2025-05-03 07:34] LABS: HEMATOCRIT. 16.8 % (36.0-48.0); HEMOGLOBIN. 5.6 g/dL (12.0-16.0)
[2025-05-03] MEDS: POTASSIUM CHLORIDE 20MEQ TABLET SR PO NR (10:59)
[2025-05-03] MEDS: HYDROCODONE/ACETAMINOPHEN 10/325MG TABLET PO PRN (13:05)
[2025-05-03] MEDS ORDERED: NALOXONE HCL 0.4MG/ML VIAL IV PRN (15:00)
[2025-05-03 17:40] LABS: EOSINOPHILS % MANUAL 1.0 % (0.0-5.0); LYMPHOCYTES % MANUAL 6.0 % (20.0-60.0); MONOCYTES % MANUAL 8.0 % (2.0-8.0); NEUTROPHILS % MANUAL 85.0 % (45.0-75.0)
[2025-05-03 17:41] LABS: PLATELET ESTIMATE SLIGHTLY DECREASED
[2025-05-03 18:24] LABS: PLATELET 113 x1000/uL (130-400); RED BLOOD CELL COUNT 2.56 mill/uL (4.2-5.4); RED CELL DISTRIBUTION WIDTH 17.5 % (11.6-14.6)
[2025-05-03] MEDS: SUCRALFATE 1G TABLET PO SCH (20:32)
[2025-05-03] MEDS: VANCOMYCIN 500 MG in DEXT 5% WATER 100 ML IV SCH (20:32)
[2025-05-04] VITALS: BP 157/92; PULSE 92; RESP 11; TEMP 36.6; O2SAT 98
[2025-05-04 04:00] VITALS: BP 155/80; PULSE 61; RESP 18; TEMP 36.3; O2SAT 98
[2025-05-04 07:20] LABS: MEAN PLATELET VOLUME 9.0 fl (7.4-10.4); PLATELET 109 x1000/uL (130-400); RED BLOOD CELL COUNT 2.21 mill/uL (4.2-5.4); RED CELL DISTRIBUTION WIDTH 18.1 % (11.6-14.6)
[2025-05-04 07:26] LABS: HEMATOCRIT. 20.8 % (36.0-48.0); HEMOGLOBIN. 7.0 g/dL (12.0-16.0)
[2025-05-04 07:38] LABS: CREATININE 3.6 mg/dL (0.6-1.0); UREA NITROGEN BLOOD 39 mg/dL (9-23)
[2025-05-04 07:57] LABS: FOLIC ACID (FOLATE) SERUM 3.30 ng/mL (>5.38)
[2025-05-04 07:59] LABS: VITAMIN B12 SERUM 1813 pg/mL (211-911)
[2025-05-04 08:00] VITALS: BP 159/96; PULSE 87; RESP 12; TEMP 36.6; O2SAT 98
[2025-05-04 10:26] LABS: EOSINOPHILS % MANUAL 1.0 % (0.0-5.0); LYMPHOCYTES % MANUAL 3.0 % (20.0-60.0); MONOCYTES % MANUAL 4.0 % (2.0-8.0); NEUTROPHILS % MANUAL 92.0 % (45.0-75.0); PLATELET ESTIMATE SLIGHTLY DECREASED
[2025-05-04 12:00] VITALS: BP 144/90; PULSE 93; RESP 15; TEMP 36.7; O2SAT 98
[2025-05-04 16:00] VITALS: TEMP 36.7
[2025-05-04 20:00] VITALS: BP 145/98; TEMP 36.7
[2025-05-05] VITALS (21 sets, daily range): BP systolic 122–164; BP diastolic 70–95; PULSE 81–102; RESP 14–19; TEMP 36.44736–36.9; O2SAT 95–99
[2025-05-05 07:33] LABS: MEAN PLATELET VOLUME 9.1 fl (7.4-10.4); PLATELET 97 x1000/uL (130-400); RED BLOOD CELL COUNT 2.03 mill/uL (4.2-5.4); RED CELL DISTRIBUTION WIDTH 18.0 % (11.6-14.6)
[2025-05-05 07:49] LABS: CREATININE 4.4 mg/dL (0.6-1.0); UREA NITROGEN BLOOD 56 mg/dL (9-23)
[2025-05-05 07:51] LABS: ASPARTATE AMINOTRANSFERASE 26 IU/L (<34); BILIRUBIN DIRECT 0.4 mg/dL (<=3.0); BILIRUBIN TOTAL 0.6 mg/dL (0.1-1.0); PROTEIN TOTAL 5.4 g/dL (6.0-8.3)
[2025-05-05] MEDS: FOLIC ACID 1MG TABLET PO SCH (08:44)
[2025-05-05 08:45] LABS: HEMATOCRIT. 18.9 % (36.0-48.0); HEMOGLOBIN. 6.3 g/dL (12.0-16.0)
[2025-05-05] MEDS: POTASSIUM CHLORIDE 20MEQ TABLET SR PO NR ×2 (09:15→14:11)
[2025-05-05] MEDS: PANTOPRAZOLE SODIUM 40 MG/VIAL IV NR ×2 (09:45→14:11)
[2025-05-05 16:09] LABS: LYMPHOCYTES % MANUAL 9.0 % (20.0-60.0); MONOCYTES % MANUAL 6.0 % (2.0-8.0); NEUTROPHILS % MANUAL 85.0 % (45.0-75.0); PLATELET ESTIMATE DECREASED
[2025-05-05] MEDS: PANTOPRAZOLE SODIUM 40 MG/VIAL IV SCH (21:13)
[2025-05-05] MEDS: EPOETIN ALFA-EPBX 4,000 UNITS/ML VIAL SUBCUT SCH (21:15)
[2025-05-06] VITALS (11 sets, daily range): BP systolic 145–164; BP diastolic 82–94; PULSE 89–99; RESP 11–22; TEMP 36.3918–36.8; O2SAT 96–100
[2025-05-06 09:36] LABS: HEMATOCRIT. 24.0 % (36.0-48.0); HEMOGLOBIN. 8.3 g/dL (12.0-16.0); MEAN PLATELET VOLUME 9.0 fl (7.4-10.4); PLATELET 117 x1000/uL (130-400); RED BLOOD CELL COUNT 2.64 mill/uL (4.2-5.4); RED CELL DISTRIBUTION WIDTH 17.4 % (11.6-14.6)
[2025-05-06 09:42] LABS: INR 1.1
[2025-05-06 09:58] LABS: CREATININE 3.6 mg/dL (0.6-1.0); UREA NITROGEN BLOOD 38 mg/dL (9-23)
[2025-05-06 10:20] LABS: EOSINOPHILS % MANUAL 2.0 % (0.0-5.0); LYMPHOCYTES % MANUAL 4.0 % (20.0-60.0); MONOCYTES % MANUAL 4.0 % (2.0-8.0); NEUTROPHILS % MANUAL 90.0 % (45.0-75.0); PLATELET ESTIMATE SLIGHTLY DECREASED
[2025-05-06] MEDS ORDERED: PROPOFOL 200MG/20ML VIAL IV ONE (11:20)
[2025-05-06] MEDS ORDERED: MIDAZOLAM HCL 2 MG/2 ML VIAL ONE (11:50)
[2025-05-06] MEDS ORDERED: HYDROMORPHONE HCL/PF 1MG/ML INJ IV PRN (12:00)
[2025-05-06] MEDS ORDERED: HYDRALAZINE 20MG/ML VIAL IV PRN ×2 (12:00)
[2025-05-06] MEDS ORDERED: LABETALOL 5MG/ML 4ML INJ IV PRN (12:00)
[2025-05-06] MEDS ORDERED: ACETAMINOPHEN 1,000MG/100ML PREMIX IV PRN (12:00)
[2025-05-06] MEDS ORDERED: MEPERIDINE HCL/PF 25MG/ML CPJ IV PRN (12:00)
[2025-05-06] MEDS ORDERED: FAMOTIDINE 20MG/2ML VIAL IV PRN (12:00)
[2025-05-06] MEDS ORDERED: ONDANSETRON HCL 4MG/2ML INJ IV PRN (12:00)
[2025-05-07] VITALS (16 sets, daily range): BP systolic 127–165; BP diastolic 74–99; PULSE 84–95; RESP 4–24; TEMP 36.2–36.6; O2SAT 88–100
[2025-05-07] MEDS: CLONIDINE 0.1MG TABLET PO PRN (01:07)
[2025-05-07 10:31] LABS: MEAN PLATELET VOLUME 9.0 fl (7.4-10.4); PLATELET 109 x1000/uL (130-400); RED BLOOD CELL COUNT 2.12 mill/uL (4.2-5.4); RED CELL DISTRIBUTION WIDTH 18.0 % (11.6-14.6)
[2025-05-07] MEDS ORDERED: PROT40 MT (10:54)
[2025-05-07] MEDS ORDERED: SUCR1TAB MT (10:54)
[2025-05-07 10:56] LABS: HEMATOCRIT. 19.7 % (36.0-48.0); HEMOGLOBIN. 6.7 g/dL (12.0-16.0)
[2025-05-07 12:45] LABS: BAND% 1.0 % (1.0-6.0); LYMPHOCYTES % MANUAL 9.0 % (20.0-60.0); MONOCYTES % MANUAL 9.0 % (2.0-8.0); NEUTROPHILS % MANUAL 81.0 % (45.0-75.0); NUCLEATED RED BLOOD CELLS 1 /100 WBC; PLATELET ESTIMATE DECREASED
[2025-05-08] VITALS (20 sets, daily range): BP systolic 112–162; BP diastolic 60–97; PULSE 80–97; RESP 14–22; TEMP 36.2–36.6; O2SAT 96–100
[2025-05-08] MEDS: POTASSIUM CHLORIDE 20MEQ TABLET SR PO NR (10:22)
[2025-05-08 10:52] LABS: HEMATOCRIT. 23.9 % (36.0-48.0); HEMOGLOBIN. 8.1 g/dL (12.0-16.0); MEAN PLATELET VOLUME 8.9 fl (7.4-10.4); PLATELET 137 x1000/uL (130-400); RED BLOOD CELL COUNT 2.61 mill/uL (4.2-5.4); RED CELL DISTRIBUTION WIDTH 16.6 % (11.6-14.6)
[2025-05-08 11:10] LABS: UREA NITROGEN BLOOD 49 mg/dL (9-23)
[2025-05-08 11:11] LABS: ASPARTATE AMINOTRANSFERASE 26 IU/L (<34); BILIRUBIN DIRECT 0.3 mg/dL (<=3.0)
[2025-05-08 11:12] LABS: BILIRUBIN TOTAL 0.5 mg/dL (0.1-1.0); PROTEIN TOTAL 6.3 g/dL (6.0-8.3)
[2025-05-08 11:17] LABS: CREATININE 4.7 mg/dL (0.6-1.0)
[2025-05-08] MEDS ORDERED: LIDOCAINE HCL 1% 20ML VIAL ONE (12:44)
[2025-05-08] MEDS: CEFAZOLIN 1000MG PREMIX 50 ML IV NR (12:50)
[2025-05-08] MEDS: FENTANYL CITRATE/PF 50MCG/ML 2ML VIAL IV NR (12:55)
[2025-05-08] MEDS ORDERED: FENTANYL CITRATE/PF 50MCG/ML 2ML VIAL ONE (12:56)
[2025-05-08 14:00] LABS: EOSINOPHILS % MANUAL 5.0 % (0.0-5.0); LYMPHOCYTES % MANUAL 4.0 % (20.0-60.0); NEUTROPHILS % MANUAL 91.0 % (45.0-75.0)
[2025-05-08 14:01] LABS: PLATELET ESTIMATE NORMAL
== END 2025-05-08 19:06 | disposition home or self-care (01) | DRG 720 ==
LOC: ER 20:33 → EDBEDREQ 21:54 → EDBEDREQSVC 04-20 00:33 → ENRESERV 04-20 04:03 → CVICU 04-20 05:05 → 3WST 04-22 16:22
PROVIDERS: ADMIT Internal Medicine; ATTEND Internal Medicine
PROC: 02H633Z Insertion of Infusion Device into Right Atrium, Percutaneous Approach (ICD-10-PCS; 2025-04-23)
PROC: B5181ZA Fluoroscopy of Superior Vena Cava using Low Osmolar Contrast, Guidance (ICD-10-PCS; 2025-04-23)
PROC: B548ZZA Ultrasonography of Superior Vena Cava, Guidance (ICD-10-PCS; 2025-04-23)
PROC: 5A1D70Z Performance of Urinary Filtration, Intermittent, Less than 6 Hours Per Day (ICD-10-PCS; 2025-04-23)
PROC: 5A1D70Z Performance of Urinary Filtration, Intermittent, Less than 6 Hours Per Day (ICD-10-PCS; 2025-04-24)
PROC: 5A1D70Z Performance of Urinary Filtration, Intermittent, Less than 6 Hours Per Day (ICD-10-PCS; 2025-04-27)
PROC: 5A1D70Z Performance of Urinary Filtration, Intermittent, Less than 6 Hours Per Day (ICD-10-PCS; 2025-04-29)
PROC: 5A1D70Z Performance of Urinary Filtration, Intermittent, Less than 6 Hours Per Day (ICD-10-PCS; 2025-05-01)
PROC: 30233N1 Transfusion of Nonautologous Red Blood Cells into Peripheral Vein, Percutaneous Approach (ICD-10-PCS; 2025-05-03)
PROC: 5A1D70Z Performance of Urinary Filtration, Intermittent, Less than 6 Hours Per Day (ICD-10-PCS; 2025-05-03)
PROC: 5A1D70Z Performance of Urinary Filtration, Intermittent, Less than 6 Hours Per Day (ICD-10-PCS; 2025-05-05)
PROC: 0W3P8ZZ Control Bleeding in Gastrointestinal Tract, Via Natural or Artificial Opening Endoscopic (ICD-10-PCS; principal; 2025-05-06)
PROC: 0DB68ZX Excision of Stomach, Via Natural or Artificial Opening Endoscopic, Diagnostic (ICD-10-PCS; 2025-05-06)
PROC: 0DB78ZX Excision of Stomach, Pylorus, Via Natural or Artificial Opening Endoscopic, Diagnostic (ICD-10-PCS; 2025-05-06)
PROC: 5A1D70Z Performance of Urinary Filtration, Intermittent, Less than 6 Hours Per Day (ICD-10-PCS; 2025-05-07)
PROC: 02PAX3Z Removal of Infusion Device from Heart, External Approach (ICD-10-PCS; 2025-05-08)
PROC: 0JH63XZ Insertion of Tunneled Vascular Access Device into Chest Subcutaneous Tissue and Fascia, Percutaneous Approach (ICD-10-PCS; 2025-05-08)
PROC: 02HV33Z Insertion of Infusion Device into Superior Vena Cava, Percutaneous Approach (ICD-10-PCS; 2025-05-08)
PROC: B5181ZA Fluoroscopy of Superior Vena Cava using Low Osmolar Contrast, Guidance (ICD-10-PCS; 2025-05-08)
PROC: 5A1D70Z Performance of Urinary Filtration, Intermittent, Less than 6 Hours Per Day (ICD-10-PCS; 2025-05-08)
DX: A41.9 Sepsis, unspecified organism (principal); R57.0 Cardiogenic shock; I13.2 Hypertensive heart and chronic kidney disease with heart failure and with stage 5 chronic kidney disease, or end stage renal disease; I50.43 Acute on chronic combined systolic (congestive) and diastolic (congestive) heart failure; I16.1 Hypertensive emergency; J96.01 Acute respiratory failure with hypoxia; I42.9 Cardiomyopathy, unspecified; D63.1 Anemia in chronic kidney disease; E88.09 Other disorders of plasma-protein metabolism, not elsewhere classified; E87.20 Acidosis, unspecified; K29.61 Other gastritis with bleeding; N18.6 End stage renal disease; N17.9 Acute kidney failure, unspecified; E87.1 Hypo-osmolality and hyponatremia; D53.9 Nutritional anemia, unspecified; E87.6 Hypokalemia; D72.829 Elevated white blood cell count, unspecified; E66.01 Morbid (severe) obesity due to excess calories; E53.8 Deficiency of other specified B group vitamins; E78.5 Hyperlipidemia, unspecified; K44.9 Diaphragmatic hernia without obstruction or gangrene; F10.90 Alcohol use, unspecified, uncomplicated; Y90.8 Blood alcohol level of 240 mg/100 ml or more; Z91.148 Patient's other noncompliance with medication regimen for other reason; Z98.891 History of uterine scar from previous surgery; Z59.00 Homelessness unspecified; Z99.2 Dependence on renal dialysis; Z68.30 Body mass index [BMI] 30.0-30.9, adult
CPT/HCPCS: 36415; 36556; 36558; 71045; 72141; 72148; 74018; 77001; 80048; 80051; 80053; 80076; 80202; 81003; 82140; 82270; 82607; 82728; 82746; 83540; 83550; 83605; 83735; 83880; 84100; 84145; 84484; 84703; 85014; 85018; 85025; 85027; 85044; 86705; 86706; 86709; 86850; 86900; 86920; 87340; 88305; 88312; 88313; 90935; 93005; 93970; 97116; 97162; 97530; 99152; 99153; 99291; A4606; C1750; C1752; C1769; J0360; J0690; J0696; J0885; J1308; J1642; J1644; J1938; J2003; J2250; J2270; J2405; J2470; J2543; J2704; J3010; J3373; J3490; J7050; J7060; P9016; G0500